=== PATIENT | male | born 1955 | race Caucasian/White ===

== ENCOUNTER 2024-02-10 10:19 | Emergency (ER) | payer MEDICARE ==
--- NOTE | 2024-02-10 10:28 | ERPHSYRPT ---
- History of Present Illness Time Seen by Provider: 02/10/24 10:27 Source: patient Exam Limitations: no limitations Physician History: This is a 68-year-old white male patient of nurse practitioner Angel and termination clerk Dr. Dobson who presents to the emergency department with a concern of rapid heart rate yesterday as well as associated worsening shortness of breath over the last several days that has persisted today. Patient has a smart watch in place and he stated that yesterday, 02/09/2024, patient was out working in the yard and his heart rate got as high as 140 bpm. He checked frequently and it had been running 110 bpm then dropping back down into the low 60s where he typically runs. He denies chest pain. He has noticed in the last couple weeks increasing shortness of breath with exertion. His termination clerk took him off of metoprolol several months ago. Patient has a history of prostate issues. Hypertension, hyperlipidemia and peripheral neuropathy. Timing/Duration: yesterday, other Activities at Onset: activity Quality: other Severity of Pain-Max: none Severity of Pain-Current: none Modifying Factors: Improves With: rest, other (Proved activity seems to bring this palpitations and shortness of breath on) Nitro Today/Relief: no nitro taken today Aspirin Treatment Today: no aspirin today Associated Symptoms: shortness of breath, weakness (Patient states he gets tired more frequently with exertion), No chest pain (With exertion) Allergies/Adverse Reactions: No Known Drug Allergies Allergy (Verified 02/10/24 10:30) Home Medications: Atorvastatin Calcium [Lipitor 40Mg] 40 mg PO DAILY 02/10/24 [History] Losartan/Hydrochlorothiazide [Losartan-Hctz 100-25 mg Tab] 1 each PO DAILY 02/10/24 [History] Tamsulosin HCl 0.4 mg [Flomax 0.4 MG] 0.4 mg PO DAILY 02/10/24 [History] Travel Risk - International Travel Have you traveled outside of the country in past 3 weeks: No - Emerging Infectious Disease Are you exhibiting symptoms associated with any current EIDs: No - Review of Systems Constitutional: Weakness Eyes: No Symptoms Ears, Nose, & Throat: No Symptoms Respiratory: Dyspnea on Exertion (GARRIDO) Cardiac: Palpitations Abdominal/Gastrointestinal: No Symptoms Genitourinary Symptoms: No Symptoms Musculoskeletal: No Symptoms Skin: No Symptoms Neurological: No Symptoms Psychological: No Symptoms Endocrine: No Symptoms Hematologic/Lymphatic: No Symptoms Immunological/Allergic: No Symptoms All Other Systems: Reviewed and Negative - Past Medical History Neurological History: Peripheral Neuropathy Cardiac History: High Cholesterol, Hypertension Respiratory History: No Pertinent History Endocrine Medical History: No Pertinent History Musculoskeletal History: No Pertinent History - Nursing Vital Signs Nursing Vital Signs: Initial Vital Signs Temperature 97.5 F 02/10/24 10:24 Pulse Rate 68 02/10/24 10:24 Respiratory Rate 20 02/10/24 10:24 Blood Pressure 160/61 02/10/24 10:24 O2 Sat by Pulse Oximetry 96 02/10/24 10:24 Pain Scale Pain Intensity 0 - Physical Exam General Appearance: no apparent distress, alert, anxiety, obese Eye Exam: PERRL/EOMI, eyes nml inspection Ears, Nose, Throat Exam: normal ENT inspection, moist mucous membranes Neck Exam: normal inspection, non-tender, supple, full range of motion Respiratory Exam: normal breath sounds, lungs clear, airway intact, No chest tenderness, No respiratory distress Cardiovascular Exam: regular rate/rhythm, normal heart sounds, normal peripheral pulses Gastrointestinal/Abdomen Exam: soft, normal bowel sounds, No tenderness Rectal Exam: not done Back Exam: normal inspection, normal range of motion, No CVA tenderness, No vertebral tenderness Extremity Exam: normal inspection, normal range of motion, pelvis stable Neurologic Exam: alert, oriented x 3, cooperative, 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 No acute ischemic changes on today's twelve-lead EKG. No comparison twelve-lead EKG available.) Ordered Tests: Active Orders 24 hr Category Date Time Status EKG-ER Only STAT Care 02/10/24 10:42 Active IV Insertion STAT Care 02/10/24 10:42 Active Pulse Oximetry (ED) STAT Care 02/10/24 10:42 Active CHEST 1 VIEW (PORTABLE) Stat Exams 02/10/24 10:52 Completed CHEST WITH CONTRAST [CT] Stat Exams 02/10/24 11:51 Completed CBC W DIFF Stat Lab 02/10/24 10:40 Completed CMP Stat Lab 02/10/24 10:40 Completed D-DIMER QUANTITATIVE Stat Lab 02/10/24 10:40 Completed MAGNESIUM Stat Lab 02/10/24 10:40 Completed NT PRO BNPII Stat Lab 02/10/24 10:40 Completed PROTIME WITH INR Stat Lab 02/10/24 10:40 Completed TROPONIN Q4H Lab 02/10/24 10:40 Completed TROPONIN Q4H Lab 02/10/24 14:45 Ordered TROPONIN Q4H Lab 02/10/24 18:45 Ordered UA W/RFX UR CULTURE Stat Lab 02/10/24 13:01 Completed Medication Summary Discontinued Medications Generic Name Dose Route Start Last Admin Trade Name Freq PRN Reason Stop Dose Admin Sodium Chloride 500 mls @ 500 mls/hr 02/10/24 11:50 02/10/24 13:36 Sodium Chloride 0.9% 500 Ml IV 02/10/24 12:49 Infused .Q1H ONE Infusion Sodium Chloride Confirm 02/10/24 11:56 Sodium Chloride 0.9% 500 Ml Administered 02/10/24 11:57 Dose 500 mls @ ud IV .STK-MED ONE Lab/Rad Data: Laboratory Result Diagrams 02/10/24 10:40 02/10/24 10:40 Laboratory Results 02/10/24 02/10/24 02/10/24 Range/Units 13:01 10:40 10:40 WBC (4.0-10.5) x10^3/uL RBC (4.1-5.6) x10^6/uL Hgb (12.5-18.0) g/dL Hct (42-50) % MCV (78-100) fL MCH (26-32) pg MCHC (32-36) g/dL RDW (11.5-14.0) % Plt Count (150-450) x10^3/uL MPV (7.5-11.0) fL Gran % (36.0-66.0) % Immature Gran % (Auto) (0.00-0.4) % Nucleat RBC Rel Count (0.00-0.1) % Eos # (Auto) (0-0.5) x10^3/uL Immature Gran # (Auto) (0.00-0.03) x10^3u/L Absolute Lymphs (auto) (1.0-4.6) x10^3/uL Absolute Monos (auto) (0.0-1.3) x10^3/uL Absolute Nucleated RBC (0.00-0.01) x10^3u/L Lymphocytes % (24.0-44.0) % Monocytes % (0.0-12.0) % Eosinophils % (0.00-5.0) % Basophils % (0.0-0.4) % Absolute Granulocytes (1.4-6.9) x10^3/uL Basophils # (0-0.4) x10^3/uL PT 10.9 (9.4-12.5) SECONDS INR 1.00 (0.8-3.0) D-Dimer 0.89 H* (0.0-0.50) mg/L Sodium (135-145) mmol/L Potassium (3.5-5.1) mmol/L Chloride (98-107) mmol/L Carbon Dioxide (22-30) mmol/L Anion Gap (5-15) MEQ/L BUN (9-20) mg/dL Creatinine (0.66-1.25) mg/dL Estimated GFR ML/MIN Glucose (74-106) mg/dL Calcium (8.4-10.2) mg/dL Magnesium (1.6-2.3) mg/dL Total Bilirubin (0.2-1.3) mg/dL AST (17-59) U/L ALT (0-50) U/L Alkaline Phosphatase (38-126) U/L Troponin I 0.023 (0.000-0.033) ng/mL NT-Pro-B Natriuret Pep (<300) pg/mL Serum Total Protein (6.3-8.2) g/dL Albumin (3.5-5.0) g/dL Urine Color Yellow (Yellow) Urine Appearance Clear (Clear) Urine pH 5.5 (4.6-8.0) Ur Specific [place] 1.020 (1.005-1.030) Urine Protein Negative (Negative) Urine Glucose (UA) Negative (Negative) mg/dL Urine Ketones Negative (Negative) Urine Blood Negative (Negative) Urine Nitrite Negative (Negative) Urine Bilirubin Negative (Negative) Urine Urobilinogen 1.0 A (0.2) mg/dL Ur Leukocyte Esterase Negative (Negative) U Hyaline Cast (Auto) NONE SEEN (0-2) /LPF Urine Microscopic RBC 0-2 (0-5) /HPF Urine Microscopic WBC 0-2 (0-5) /HPF Ur Epithelial Cells None Seen (None Seen) /HPF Urine Bacteria None Seen (None Seen) /HPF Urine Culture Reflexed NO (NO) 02/10/24 02/10/24 Range/Units 10:40 10:40 WBC 5.0 (4.0-10.5) x10^3/uL RBC 4.42 (4.1-5.6) x10^6/uL Hgb 13.0 (12.5-18.0) g/dL Hct 39.5 L (42-50) % MCV 89.4 (78-100) fL MCH 29.4 (26-32) pg MCHC 32.9 (32-36) g/dL RDW 12.4 (11.5-14.0) % Plt Count 164 (150-450) x10^3/uL MPV 9.2 (7.5-11.0) fL Gran % 49.6 (36.0-66.0) % Immature Gran % (Auto) 0.2 (0.00-0.4) % Nucleat RBC Rel Count 0.0 (0.00-0.1) % Eos # (Auto) 0.18 (0-0.5) x10^3/uL Immature Gran # (Auto) 0.01 (0.00-0.03) x10^3u/L Absolute Lymphs (auto) 1.72 (1.0-4.6) x10^3/uL Absolute Monos (auto) 0.53 (0.0-1.3) x10^3/uL Absolute Nucleated RBC 0.00 (0.00-0.01) x10^3u/L Lymphocytes % 34.7 (24.0-44.0) % Monocytes % 10.7 (0.0-12.0) % Eosinophils % 3.6 (0.00-5.0) % Basophils % 1.2 (0.0-0.4) % Absolute Granulocytes 2.46 (1.4-6.9) x10^3/uL Basophils # 0.06 (0-0.4) x10^3/uL PT (9.4-12.5) SECONDS INR (0.8-3.0) D-Dimer (0.0-0.50) mg/L Sodium 141 (135-145) mmol/L Potassium 3.6 (3.5-5.1) mmol/L Chloride 107 (98-107) mmol/L Carbon Dioxide 26 (22-30) mmol/L Anion Gap 11.5 (5-15) MEQ/L BUN 32 H (9-20) mg/dL Creatinine 1.78 H (0.66-1.25) mg/dL Estimated GFR 40.5 ML/MIN Glucose 101 (74-106) mg/dL Calcium 9.5 (8.4-10.2) mg/dL Magnesium 2.0 (1.6-2.3) mg/dL Total Bilirubin 0.90 (0.2-1.3) mg/dL AST 41 (17-59) U/L ALT 34 (0-50) U/L Alkaline Phosphatase 77 (38-126) U/L Troponin I (0.000-0.033) ng/mL NT-Pro-B Natriuret Pep 67.5 (<300) pg/mL Serum Total Protein 7.3 (6.3-8.2) g/dL Albumin 4.3 (3.5-5.0) g/dL Urine Color (Yellow) Urine Appearance (Clear) Urine pH (4.6-8.0) Ur Specific [place] (1.005-1.030) Urine Protein (Negative) Urine Glucose (UA) (Negative) mg/dL Urine Ketones (Negative) Urine Blood (Negative) Urine Nitrite (Negative) Urine Bilirubin (Negative) Urine Urobilinogen (0.2) mg/dL Ur Leukocyte Esterase (Negative) U Hyaline Cast (Auto) (0-2) /LPF Urine Microscopic RBC (0-5) /HPF Urine Microscopic WBC (0-5) /HPF Ur Epithelial Cells (None Seen) /HPF Urine Bacteria (None Seen) /HPF Urine Culture Reflexed (NO) - Progress Progress: improved, re-examined Air Movement: good Progress Note: 02/10/24 11:32 My medical decision making and the assignment of moderate complexity to this patient's medical issue today is based on review of the patient's past medical history, review the patient's medication list, review the patient drug allergy list, history present illness and physical findings on examination. The workup in this patient includes placement of intravenous line, twelve-lead EKG, BNP, D- dimer, troponin level, magnesium level, CMP, CBC, chest x-ray, urinalysis. Differential diagnosis includes myocardial infarction, pulmonary embolus, pneumonia, BNP, dysrhythmia 02/10/24 11:34 The chest x-ray was interpreted by the radiologist and I reviewed the impression. Depression states nonacute underinflated chest x-ray. 02/10/24 13:[address] scan of the chest with contrast was interpreted by the radiologist and I reviewed the impression. 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 This study is negative for pulmonary embolus. 02/10/24 14:26 Spoke with the patient's termination clerk Dr. Dobson. I reviewed the patient history, chief complaint and the results of her workup here. The termination clerk and I both agree the patient would be best served by transferring him to the heart center. I will discuss this with the patient. His termination clerk is making arrangements for transfer/admission. Blood Culture(s) Obtained: No Antibiotics given: No Counseled pt/family regarding: lab results, diagnosis, need for follow-up, rad results Medical Desision Making - Independent Historian Additional History obtained from: Spouse - Diagnostic Testing Diagnostic test were ordered, analyzed, and reviewed by me: Yes Radiological Interpretation: Reviewed by me, Teleradiologist Report - Risk of complications The pt has a high risk of morbidity or mortality based on: Decision regarding hospitilization or escalation of hosp level of care - Departure Departure Disposition: Home Clinical Impression: PVCs (premature ventricular contractions), Dyspnea on exertion, Palpitations Condition: Stable Critical Care Time: No Referrals: EMMA ROWELL NP [Primary Care Provider] - Follow up/PCP as directed
[2024-02-10 10:30] VITALS: TEMP 97.5
[2024-02-10 11:04] LABS: Absolute Neutrophil Ct (ANC) 2.46 x10^3/uL (1.4-6.9); BASOPHIL % 1.2 % (0.0-0.4); Basophil (Absolute #) 0.06 x10^3/uL (0-0.4); Eosinophil % 3.6 % (0.00-5.0); Eosinophil (Absolute #) 0.18 x10^3/uL (0-0.5); Hematocrit 39.5 % (42-50); IMMATURE GRAN # 0.01 x10^3u/L (0.00-0.03); IMMATURE GRAN % 0.2 % (0.00-0.4); Lymphocyte (Absolute #) 1.72 x10^3/uL (1.0-4.6); Lymphocytes % 34.7 % (24.0-44.0); Mean Cell Volume 89.4 fL (78-100); Mean Corpuscular Hemoglobin 29.4 pg (26-32); Mean Corpuscular Hgb Concent. 32.9 g/dL (32-36); Mean Platelet Volume 9.2 fL (7.5-11.0); Monocyte (Absolute #) 0.53 x10^3/uL (0.0-1.3); Monocytes % 10.7 % (0.0-12.0); Neutrophil % 49.6 % (36.0-66.0); Platelet Count 164 x10^3/uL (150-450); Red Blood Count 4.42 x10^6/uL (4.1-5.6); Red Cell Distribution Width 12.4 % (11.5-14.0)
--- NOTE | 2024-02-10 11:16 | XRAY ---
Indication: Short of breath. Comparison: None Portable chest slightly under inflated and clear. Heart not enlarged. Bony thorax intact with minimal degenerative changes. Impression: Nonacute underinflated chest.
[2024-02-10 11:25] LABS: ALBUMIN 4.3 g/dL (3.5-5.0); ANION GAP 11.5 MEQ/L (5-15); BILIRUBIN,TOTAL 0.9 mg/dL (0.2-1.3); Calcium 9.5 mg/dL (8.4-10.2); Creatinine 1 1.78 mg/dL (0.66-1.25); EST GLOMERULAR FILTRATION RATE 40.5 ML/MIN; NT PRO BNPII 67.5 pg/mL (<300); PROTIME 10.9 SECONDS (9.4-12.5); Potassium 3.6 mmol/L (3.5-5.1); Total Protein 7.3 g/dL (6.3-8.2)
[2024-02-10 11:31] LABS: D-DIMER QUANTITATIVE 0.89 mg/L (0.0-0.50)
[2024-02-10] MEDS ORDERED: Sodium Chloride 0.9% 500 ML 500 ML IV ONE (11:56)
[2024-02-10] MEDS: Sodium Chloride 0.9% 500 ML 500 ML IV ONE (11:57)
--- NOTE | 2024-02-10 12:59 | XRAY ---
Indication: Tachycardia. Short of breath. Elevated d-dimer. Multiple contiguous axial images obtained of the chest using 80 cc Isovue 370 contrast and PE protocol. Comparison: None Good opacification of the pulmonary arteries to include the lobar and segmental branches. Heart not enlarged with scattered coronary calcifications and prominent epicardiac fat. Aorta is mildly arteriosclerotic without aneurysm/dissection. [place] subcarinal calcified nodes. No pathologic mediastinal/hilar lymphadenopathy. Lungs inflated and clear. Bony thorax intact with minimal degenerative changes throughout the spine. Limited upper abdomen demonstrates tiny splenic calcified granulomas. Impression: Chronic findings including arteriosclerotic disease, degenerative spondylosis, and old granulomatous disease. Remaining CT chest pulmonary embolus exam is normal.
[2024-02-10 13:29] LABS: Appearance Clear (Clear); Bacteria None Seen /HPF (None Seen); Bilirubin Negative (Negative); Blood Negative (Negative); Epithelial Cells None Seen /HPF (None Seen); Glucose, Urine Negative (Negative); Hyaline Casts NONE SEEN /LPF (0-2); Ketones Negative (Negative); Leukocyte Esterase Negative (Negative); Nitrite Negative (Negative); Ph 5.5 (4.6-8.0); Protein,Urine Dip Negative (Negative); RBC 0-2 /HPF (0-5); WBC 0-2 /HPF (0-5)
[2024-02-10 13:34] LABS: ADD URINE CULTURE? NO (NO)
[2024-02-10 17:13] VITALS: PULSE 52; RESP 18; O2SAT 97
[2024-02-10 17:39] VITALS: BP 150/122
== END 2024-02-10 17:41 | disposition short-term general hospital (02) ==
LOC: ED 10:19
DX: I49.3 Ventricular premature depolarization (principal); R06.09 Other forms of dyspnea; R00.2 Palpitations; I10 Essential (primary) hypertension; E78.5 Hyperlipidemia, unspecified; Z79.899 Other long term (current) drug therapy
CPT/HCPCS: 36000; 36415; 71045; 71260; 80053; 81001; 83735; 83880; 84484; 85025; 85379; 85610; 93005; 94760; 99285